=== PATIENT | female | born 2000 | race Caucasian/White ===

== ENCOUNTER 2019-12-14 00:34 | Emergency (ER) | payer MEDICAID, SELFPAY ==
[2019-12-14] VITALS (12 sets, daily range): BP systolic 128–138; BP diastolic 76–105; PULSE 91–110; RESP 15–18; TEMP 36.6–36.9; O2SAT 96–98; BMI 20.9
--- NOTE | 2019-12-14 00:39 | ED.RN ---
PER PT REQUEST, [facility] CONTACTED TO FILE A REPORT
--- NOTE | 2019-12-14 00:51 | ED.RN ---
PER DISPATCH, PT WILL NEED GO TO [facility] TO MAKE A REPORT
--- NOTE | 2019-12-14 00:58 | ED.RN ---
THIS NURSE CONTACTED PT FATHER. HE WILL COME TO THE ER. IS GOING TO HAVE THE BROTHER COME UP ALSO
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
--- NOTE | 2019-12-14 01:11 | ED.RN ---
PER DR LUNDY, NO SITTER NEEDED
[2019-12-14 01:14] LABS: Internal QC Validated? YES +Cl - CLEAR BKGD; Pregnancy, Serum, hCG Quali. NEGATIVE Negative
[2019-12-14 01:15] LABS: Alcohol, Blood (Medical)-Serum < 3.0 mg/dL
[2019-12-14 01:17] LABS: Anion Gap 8 (5-15); BUN 15 mg/dL (7-18); BUN/Creat Ratio 15.1 RATIO (10-20); Chloride 109 mmol/L (98-107); Creatinine, Serum 0.99 mg/dL (0.55-1.02); EST Glomerular Filtration Rate 75 mL/min (>60); Est Glom Filt Rate - Afr Amer 91 mL/min (>60); Estimated Creatinine Clearance 74.98 ml/min; Glucose 105 mg/dL (74-106); Potassium 3.7 mmol/L (3.5-5.1); Sodium Level 140 mmol/L (136-145)
--- NOTE | 2019-12-14 01:32 | ED.RN ---
THIS NURSE REQUESTED PT TO GIVE A URINE SAMPLE. PT DOES NOT THINK SHE CAN GO AT THIS TIME. OFFERED TO GET HER SOMETHING TO DRINK OR EAT. PT DECLINED
[2019-12-14 01:33] LABS: Absolute Lymphocyte Count 1.89 X10^3/uL (0.83-4.51); Absolute Neutrophil Count 7.1 X10^3/uL (2.0-7.7); Basophil# 0.03 X10^3/uL; Basophil% 0.3 % (0-1); Eosinophil# 0.04 X10^3/uL; Eosinophils% 0.4 % (0-5); Hematocrit 42.5 % (37-47); Lymphocyte # 1.89 X10^3/ul (4.0); Lymphocyte % 19.4 % (19-41); Mean Corp Hgb Conc 35.3 g/dL (32-36); Mean Corpuscular Hgb 31.1 pg (27.0-32.0); Mean Corpuscular Volume 88.2 fL (81-99); Mean Platelet Vol. 10.7 fl (6.2-12.0); Monocyte% 7.2 % (0-10); NRBC Flagged by Analyzer 0 % (0-5); Neutrophil # 7.06 X10^3/uL (2.7-7.7); Neutrophil % 72.4 % (47-70); Platelet Count 244 K/mm3 (150-450); RBC Distribution Width CV 12.2 % (11.6-14.6); RBC Distribution Width SD 39.3 fl (35.1-43.9); Red Blood Count 4.82 M/mm3 (4.2-5.4); White Blood Count 9.8 K/mm3 (4.4-11.0)
--- NOTE | 2019-12-14 01:36 | ED.RN ---
PT BROTHER AND ARE HERE. PT ONLY WANTS TO SEE HER FATHER, BROTHER, AND BOYFRIEND. BROTHER WANTS TO STAY IN THE WAITING ROOM UNTIL FATHER GETS HERE
--- NOTE | 2019-12-14 01:56 | ED.RN ---
DR LUNDY SPEAKING WITH FATHER AND BROTHER
--- NOTE | 2019-12-14 02:15 | ED.RN ---
THIS NURSE IN THE ROOM TO BE A SITTER. PT VERY UNCOOPERATIVE AND YELLING. PT DEMANDING TO SPEAK WITH HER FATHER. FATHER CAME INTO THE ROOM. PT DEMANDING HER PHONE AND TO SPEAK WITH HER FAMILY. DR LUNDY IN THE ROOM TO EXPLAIN TO THE PT THAT SHE IS PINK SLIPPED. PT GOT OUT OF THE BED AND ATTEMPTED TO LEAVE THE DEPARTMENT. THIS NURSE AND THE PT BROTHER CONVINCED PT TO GET BACK IN THE BED. PT REQUESTING TO SPEAK TO HER BROTHER ALONE. THIS NURSE EXPLAINED TO HER BROTHER AND PT THAT WE ARE UNABLE TO LEAVE THE ROOM AND SHUT THE DOOR. THE PT BEGAN QUIETLY SPEAKING WITH HER BROTHER. THIS NURSE ASKED TO PT IF SHE WOULD LIKE SOMETHING TO HELP HER CALM DOWN. PT DID NOT ANSWER THE QUESTIONS.
--- NOTE | 2019-12-14 02:40 | EKG12_ITS ---
Test Reason : MEDICAL CLEARANCE Blood Pressure : / mmHG Vent. Rate : 103 BPM Atrial Rate : 103 BPM P-R Int : 158 ms QRS Dur : 070 ms QT Int : 356 ms P-R-T Axes : 067 066 040 degrees QTc Int : 466 ms Sinus tachycardia Otherwise normal ECG Confirmed by ARTIS RODRÍGUEZ, KACIE ([id number]), editor managing newspaper PARUL MACIAS ([id number]) on 12/16/2019 12:57:06 PM Referred By: NIKKIE Confirmed By:BRIE WISDOM MD
[2019-12-14 02:59] LABS: AST(SGOT) 18 U/L (15-37); Alanine Aminotransfer ALT/SGPT 22 U/L (13-56); Albumin, Serum 4.8 g/dL (3.2-5.0); Alkaline Phosphatase 66 U/L (45-117); Bilirubin, Direct 0.23 mg/dL (0.00-0.30); Globulin 3.8 g/dL (2.2-4.2); Protein, Total 8.6 g/dL (6.4-8.2)
--- NOTE | 2019-12-14 03:09 | ED.RN ---
PT UP TO THE BATHROOM. URINE SAMPLE OBTAINED. PT STATES STOP LOOKING AT ME LIKE THAT. THIS NURSE AND HER BROTHER ATTEMPTED TO EXPLAIN THAT WE ARE ATTEMPTING TO HELP HER. PT GIVEN HER CELL PHONE BY THIS NURSE. THE BROTHER EXPLAINED TO THE PT THAT HE NEEDED TO LEAVE. PT AGAIN WAS OFFERED SOMETHING TO HELP HER RELAX BY PATSY Cramer RN. PT REFUSED. PT SITTING IN THE BED ON HER PHONE. SITTER REMAINS AT THE BEDSIDE
--- NOTE | 2019-12-14 03:12 | ED.RN ---
FATHER (MARI) CELL PHONE # [phone]
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
--- NOTE | 2019-12-14 03:30 | ED.RN ---
PT REQUESTING TO SEE THE PT. WHEN THE NURSE WAS ASKED BY PATSY Cramer RN IF SHE WANTED HER TO COME TO THE ROOM THE PT STATES NO. WHEN THE WAS INFORMED OF THIS INFORMATION HE WAS VERY RESPECTFUL AND SAID HE UNDERSTOOD. THE SHOWED A STAFF MEMBER A TEXT MESSAGE HE RECEIVED FROM THE PT SAYING SHE WANTS TO SEE HIM. HE WAS INFORMED THAT UNFORTUNATELY, SHE TOLD OUR STAFF NO
[2019-12-14 03:31] LABS: Glucose, Dipstick Normal (Normal); Ketone-Dipstick 50 mg/dl (Negative); Leukocyte Esterase-Dipstick 500 /ul (Negative); Nitrite-Dipstick Negative (Negative); Occult Blood-Urine 10 /ul (Negative); Protein-Dipstick 30 mg/dl (Negative); Urine Bilirubin Dipstick Negative (Negative); Urine Urobilinogen 1 mg/dl (Normal)
[2019-12-14 03:34] LABS: Color, Urine Yellow (Yellow); Urine Clarity Sl Cldy (Clear)
[2019-12-14 03:35] LABS: Amphetamine Urine VISTA NEGATIVE (<1000 ng/mL); Barbiturate Urine VISTA NEGATIVE (< 200 ng/mL); Benzodiazepine Urine VISTA NEGATIVE (< 200 ng/mL); Cocaine Urine VISTA NEGATIVE (< 300 ng/mL); Ecstacy Urine VISTA NEGATIVE (< 500 ng/mL); Methadone Urine VISTA NEGATIVE (< 300 ng/mL); PCP Urine VISTA NEGATIVE (< 25 ng/mL); THC Urine VISTA POSITIVE (< 50 ng/mL); Vista UDS pH Range 5
[2019-12-14 03:41] LABS: Calcium Oxalate Crystals Ur RARE /hpf (<or=2+)
[2019-12-14 03:42] LABS: Bacteria 1+ /hpf (None Seen); White Blood Cells 25-50 SEEN /hpf (0-5)
[2019-12-14 03:43] LABS: Squamous Epithelial Cells - UA 5-10 SEEN /hpf (5-10)
[2019-12-14 03:44] LABS: Mucous, Urine RARE /hpf (<or=2+); Red Blood Cells-Urine 0-5 SEEN /hpf (0-5)
[2019-12-14] MEDS: Smz/Tmp Ds Tablet 1 TABLET PO (04:36)
--- NOTE | 2019-12-14 08:23 | ED.RN ---
BREAKFAST TRAY GIVEN TO PT. PT DENIES FURTHER NEEDS AT THIS TIME.
--- NOTE | 2019-12-14 08:57 | ED.RN ---
RING GIVEN TO SPOUSE.
--- NOTE | 2019-12-14 11:45 | ED.RN ---
EKG NEEDED FOR PLACEMENT TO [facility]. PT UNCOOPERATIVE AND TEARFUL, PT STATES WORRIED THAT EKG WILL BE PAINFUL. PT REASSURED THAT EKG IS PAINLESS. PT CONTINUES TO BE TEARFUL. EKG IS ACQUIRED AND SENT TO [facility]. PT DENIES FURTHER NEEDS AT THIS TIME. PT ALSO STATES THAT SHE HAS BODY ACHES AND HURTS ALL OVER. TYLENOL ORDERED PER MAR, HOWEVER PT REFUSES. LUNCH TRAY DELIVERED, PT REFUSES TO EAT. BREAKFAST TRAY REMOVED FROM ROOM AND LUNCH TRAY LEFT ON COUNTER IN ROOM.
--- NOTE | 2019-12-14 12:34 | ED.RN ---
PT REQUESTS THAT EX-, VALENTINA, NOT BE ALLOWED TO ROOM TO VISIT. TRIAGE INFORMED. VISITORS WILL BE RESTRICTED PER PT REQUEST.
--- NOTE | 2019-12-14 15:52 | ED.RN ---
CALLED JONAH AT [facility] AND INFORMED HER THAT TRANSPORTING SQUAD PRESENT AND WILL BE BRINGING PT TO [facility].
== END 2019-12-14 15:58 ==
PROVIDERS: Emergency Medicine; Emergency Provider Emergency Medicine
DX: N39.0 Urinary tract infection, site not specified (principal); R45.851 Suicidal ideations; F17.210 Nicotine dependence, cigarettes, uncomplicated
CPT/HCPCS: 80048; 80076; 80307; 80320; 81001; 84703; 85025; 93005; 99285; G0480; J3486

== ENCOUNTER 2022-11-26 01:34 | Emergency (ER) | payer BC, MEDICAID, SELFPAY ==
[2022-11-26 01:38] VITALS: BP 141/89; PULSE 76; RESP 18; TEMP 36.8; O2SAT 100; BMI 32.1
--- NOTE | 2022-11-26 01:53 | EDS_ITS ---
HPI History of Present Illness Chief Complaint: Cellulitis Informant: patient Onset/Context/Timing Onset: Days (1-2) Context: Gradual Onset Timing: Continuous Quality: sore/pain Location: both breasts Current Severity: Severe Maximum Severity: Severe Worsened by: physical manipulation, baby , pumping Relieved by: nothing; has tried ibuprofen only Associated Symptoms Associated Symptoms: none Narrative Narrative: Patient presenting with bilateral breast pain that has been gradually worsening over the last 1 or 2 days. She is breast-feeding a 4-month-old. She had something similar happen a month or so ago and was diagnosed with a clogged milk duct, so she thinks it is the same thing and presents with that as her chief complaint but now it is both breasts and there is redness and swelling her pain is a lot worse. No fevers or chills. She is having trouble getting milk out although some of it is coming out, no other discharge such as bleeding or pus. PFSH PFSH no medical history Home Medications cephalexin 500 mg capsule 500 mg PO Q6 #40 CAPSULES 11/26/22 [Rx Last Taken Unknown] tramadol 50 mg tablet 50 mg PO Q6H PRN pain 3 days #12 tabs 11/26/22 [Rx Last Taken Unknown] Allergy/AdvReac Type Severity Reaction Status Date / Time No Known Allergies Allergy Verified 12/14/19 00:35 Surgical History H/O section Social History Smoking Status: Former smoker ROS ROS ED Constitutional Constitutional ED: Denies chills or fever(s) Respiratory/Chest Respiratory/Chest: Reports other Details: Breast pain and redness see HPI EXAM Physical Exam Const Vital Signs: 11/26/22 01:38 Temperature 98.2 F Temperature Source Temporal Pulse Rate 76 Respiratory Rate 18 Blood Pressure 141/89 H Blood Pressure Mean 106 Pulse Ox 100 Oxygen Delivery Method Room Air Positive well nourished and well developed General Appearance ED: well developed and NAD HEENT Reports moist mucous membranes Eyes PERRL and EOMs intact bilaterally Neck supple Neck Narrative: FROM Chest Wall Chest Narrative: Bilateral tender erythema with some induration but no abscess in both breasts, emanating from the nipple and areola, worse in dependent areas of breasts and worse on the right, although the left nipple and areola is worse. There is some milk leaking from the left nipple. No pus or bleeding. No palpable abscesses on either breast. No other areas of the chest wall involved. Resp normal respiratory effort Neuro oriented x3, CN's II-XII intact bilaterally and no sensory deficits noted Motor Exam: strength 5/5 throughout Psych mental status grossly normal Mood & Affect: tearful Skin Skin Narrative: See breast exam above no other abnormal lesions or areas. No bullae. No petechia. No purpura. MDM MDM MDM Narrative Medical decision making narrative: I think this is more consistent with mastitis rather than a clogged milk duct since both breasts are involved, and she is having erythema away from the areola as well. Gave her a dose of IM Ancef here, some tramadol, as well as a prescription for cephalexin and tramadol and advised to follow-up with her [employer]POSAL WORKER. Discharge Plan Triage Chief Complaint: Cellulitis ED Provider: Michele Mari Dx/Rx/DC Orders Clinical Impression: Acute mastitis Instructions: ED Mastitis Prescriptions: New tramadol 50 MG tablet 50 mg PO Q6H PRN (Reason: pain) 3 Days Qty: 12 0RF cephalexin [cephalexin] 500 MG capsule 500 mg PO Q6 Qty: 40 0RF Primary Care Provider: Care Physician,No Primary Referrals: SEW[employer] DISPOSAL WORKER, your [Other] - As soon as possible Care Physician,No Primary [Primary Care Provider] - Activity Restrictions/Additional Instructions: Continue to try pumping breastmilk as able. Dump/discard it for now until you talk to your breast surgeon, while you are on the antibiotic and/or pain medication, but it is important to still pump to try to keep your breastmilk coming in as long as possible. Disposition Disposition: Home, Self Care
[2022-11-26] MEDS: Cefazolin 1 GM/5 ML Vial IM (02:26)
[2022-11-26] MEDS: traMADol 50 MG Tablet PO (02:27)
== END 2022-11-26 02:30 | disposition home or self-care (01) ==
LOC: ED 02:05
PROVIDERS: Emergency Provider Emergency Medicine; Visit Provider Emergency Medicine
DX: N61.0 Mastitis without abscess (principal); Z87.891 Personal history of nicotine dependence
CPT/HCPCS: 96372; 99283

== ENCOUNTER 2022-12-28 22:31 | Emergency (ER) | payer BC, MEDICAID, SELFPAY ==
[2022-12-28 22:32] VITALS: BP 121/73; PULSE 74; RESP 15; TEMP 36.6; O2SAT 98; BMI 29.5
--- NOTE | 2022-12-29 00:21 | EDS_ITS ---
HPI History of Present Illness Chief Complaint: Cellulitis Narrative Narrative: Patient is a 22-year-old female who states that she is approximately 3 months .. She states that she pumps and then feeds breastmilk to her daughter. She states a month or so ago she was diagnosed with mastitis and took antibiotics and improved. She states in the last 1 to 2 days she has noticed bilateral breast swelling and redness. She states there is some pain associated with this but otherwise states that it is also pruritic. She denies any nipple discharge and she denies any trauma or history of immunosuppression. However with concern for repeat infection she presents for evaluation. PFSH PFSH Home Medications cephalexin 500 mg capsule 500 mg PO Q6 #40 CAPSULES 11/26/22 [Rx Last Taken Un known] tramadol 50 mg tablet 50 mg PO Q6H PRN pain 3 days #12 tabs 11/26/22 [Rx Last Taken Unknown] cephalexin 500 mg capsule 500 mg PO TID 7 days #21 caps 12/29/22 [Rx Last Taken Unknown] fluconazole 150 mg tablet (Diflucan) 150 mg PO Q3D 3 days #3 tabs 12/29/22 [Rx Last Taken Unknown] nystatin 100,000 unit/gram topical cream 1 applic topical TID 10 days #30 grams 12/29/22 [Rx Last Taken Unknown] Allergy/AdvReac Type Severity Reaction Status Date / Time No Known Allergies Allergy Verified 12/28/22 22:35 Surgical History H/O section Social History Smoking Status: Former smoker ROS ROS ED Constitutional Constitutional ED: Denies chills or fever(s) ENT ENT ED: Denies sore throat Cardiovascular Cardiovascular: Denies chest pain Respiratory/Chest Respiratory/Chest: Denies cough or dyspnea Gastrointestinal Gastrointestinal: Denies abdominal pain, diarrhea, nausea or vomiting Genitourinary Genitourinary ED: Denies dysuria Musculoskeletal Musculoskeletal: Denies myalgias Integumentary Reports rash Neurologic Neurologic: Denies headache(s) Hematologic/Lymphatic Hematologic/Lymphatic: Denies easy bleeding or easy bruising EXAM Physical Exam Const Vital Signs: 12/28/22 22:32 Temperature 97.9 F Temperature Source Temporal Pulse Rate 74 Respiratory Rate 15 Blood Pressure 121/73 H Blood Pressure Mean 89 Pulse Ox 98 Oxygen Delivery Method Room Air Positive well nourished and well developed General Appearance ED: well developed HEENT HEENT Narrative: No oral lesions no airway edema or compromise Eyes PERRL and EOMs intact bilaterally Neck supple Resp normal respiratory effort and clear to auscultation bilaterally Cardio regular rate and regular rhythm Extremity normal to inspection Neuro oriented x3 and CN's II-XII intact bilaterally Sensorium / Orientation: alert Psych mental status grossly normal Skin Skin Narrative: Along the lower medial quadrant of bilateral breast there is erythema that is blanchable in nature. There is just slight warmth associated with this. No abscess formation or lymphangitic streaking noted. Patient does state that the area is more pruritic than painful. No obvious breast mass noted. MDM MDM MDM Narrative Medical decision making narrative: Patient presented to the ER with stable vitals and does not have a history of immunosuppression. She denies any recent trauma and states that she is not truly breast-feeding but pumping. Differential includes mastitis versus abscess versus breast mass versus cutaneous candidiasis. As the area is bilateral along the medial lower quadrants and she states is more pruritic in nature I feel this is most likely topical candidiasis. Therefore this time without signs of systemic infection or abscess formation or breast mass there is no need for imaging or laboratory studies. Patient be placed on medication secondary to this and is otherwise safe for discharge History & Record Review Discussion w/independent historian: Patient and Family Discharge Plan Triage Chief Complaint: Cellulitis ED Provider: Froylan Tomas Dx/Rx/DC Orders Clinical Impression: Candidiasis of skin Instructions: ED Kasia Skin Infection (Adult) Prescriptions: New fluconazole [Diflucan] 150 mg tablet 150 mg PO Q3D 3 Days Qty: 3 0RF Rx Instructions: 1 pill by mouth every 3 days for 3 doses nystatin 100,000 unit/gram cream 1 applic topical TID 10 Days Qty: 30 1RF cephalexin 500 mg capsule 500 mg PO TID 7 Days Qty: 21 0RF No Action tramadol 50 MG tablet 50 mg PO Q6H PRN (Reason: pain) 3 Days Qty: 12 0RF cephalexin [cephalexin] 500 MG capsule 500 mg PO Q6 Qty: 40 0RF Primary Care Provider: Care Physician,No Primary Referrals: Care Physician,No Primary [Primary Care Provider] - Activity Restrictions/Additional Instructions: Your physical exam indicates this is a topical skin infection from yeast not bacteria. Take the oral antifungal and use the topical antifungal as directed to help resolve this. If there is no improvement after 5 to 7 days you may transition to the antibiotic that was also prescribed. If you have any further concerns or worsening of symptoms return to the ER for repeat evaluation. It is safe to breast-feed while taking the prescribed medication Disposition Disposition: Home, Self Care Discharge Date/Time: 12/29/22 00:38
[2022-12-29] MEDS: Fluconazole 100 MG Tablet 150 MG PO (00:25)
== END 2022-12-29 00:38 | disposition home or self-care (01) ==
PROVIDERS: Emergency Provider Emergency Medicine; Visit Provider Emergency Medicine
DX: B37.2 Candidiasis of skin and nail (principal); Z87.891 Personal history of nicotine dependence
CPT/HCPCS: 99282

== ENCOUNTER 2024-08-21 08:37 | Emergency (ER) | payer OTHER, MEDICAID, SELFPAY ==
[2024-08-21 08:38] VITALS: BP 114/65; PULSE 76; RESP 16; TEMP 36.7; O2SAT 100; BMI 30.2
--- NOTE | 2024-08-21 08:48 | ED.VIS.FEGU ---
HPI HPI - Female History of Present Illness Chief Complaint: Complaint Narrative Narrative: 24-year-old female, G2, P1 at approximately 18 weeks gestation presents with UTI type symptoms that she has had since Thursday. This was 2 days ago. She complains of urinary frequency, burning, and dysuria. She has pain in her left side of her pelvis it is more dull and achy. She denies any vaginal bleeding. No fevers or chills. She has had nausea and vomiting since the first trimester of her . She states that she called the E[employer]IC ASSEMBLER on-call, who thought maybe she had a urinary tract infection. She went to urgent care, who in turn sent her to the emergency department for further evaluation. PFSH PFS Home Medications ?Medication ?Instructions ?Recorded ?Last Taken ?Type cephalexin 500 mg capsule 500 mg PO Q6 #40 CAPSULES 11/26/22 Unknown Rx tramadol 50 mg tablet 50 mg PO Q6H PRN pain 3 days #12 11/26/22 Unknown Rx tabs cephalexin 500 mg capsule 500 mg PO TID 7 days #21 caps 12/29/22 Unknown Rx fluconazole 150 mg tablet 150 mg PO Q3D 3 days #3 tabs 12/29/22 Unknown Rx (Diflucan) nystatin 100,000 unit/gram topical 1 applic topical TID 10 days #30 12/29/22 Unknown Rx cream grams Allergy/AdvReac Type Severity Reaction Status Date / Time No Known Allergies Allergy Verified 08/21/24 08:38 Surgical History H/O section Social History Smoking Status: Former smoker ROS ROS ED ROS Narrative Focused review of systems positive for dysuria, burning with urination and urinary frequency. No gross hematuria. No vaginal bleeding. Mild left-sided pelvic pain. No fevers or chills. No recent nausea or vomiting. No problems with bowel movement. EXAM Physical Exam Narrative Exam Narrative: Afebrile. Vital signs noted. Nontoxic-appearing. Cardiovascular examination reveals a regular rate and rhythm. Lungs are clear to auscultation bilaterally. Abdomen is soft, nontender, with positive bowel sounds. No guarding or rebound. No CVA tenderness to percussion bilaterally. Neurological examination is nonfocal and nonlateralizing. Ambulatory in emergency department. Const Vital Signs: 08/21/24 08:38 Temperature 98.0 F Temperature Source Oral Pulse Rate 76 Respiratory Rate 16 Blood Pressure 114/65 Blood Pressure Mean 81 Pulse Ox 100 Oxygen Delivery Method Room Air MDM MDM MDM Narrative Medical decision making narrative: Differential diagnosis includes but not limited to cystitis versus pyelonephritis versus diverticulitis. I have low concern for premature labor or ureterolithiasis because the history and physical does not support this. She is below 20 weeks gestation as her last menstrual period was sometime in February. I do not feel she requires formal ultrasound currently as she is not having vaginal bleeding. She states she has had ultrasounds in the office which show intrauterine . Urinalysis and urine culture were obtained. RN will attempt to obtain heart rate. I reviewed her urinalysis and while there are 0 WBCs and 0-5 squamous epithelial cells she has 2+ bacteria without mucus, negative ketones, negative nitrites. This was sent for culture. However, with her being with heart rate obtained and reviewed at 142 bpm, she will be treated as a urinary tract infection and was given her first dose of Keflex here. I paged the E[employer]IC AS[employer]BLER on-call for [facility] to arrange follow-up. Return instructions to the emergency department were reviewed. Disposition is discharged home in stable condition. History & Record Review Discussion w/independent historian: Patient Lab Data Attestation: I reviewed the patient's lab results. Labs: Laboratory Results - last 24 hr 08/21/24 09:05 Urine Color Yellow Urine Clarity Clear Urine pH 8.0 Ur Specific [place] 1.015 Urine Protein Negative Urine Glucose (UA) Normal Urine Ketones Negative Urine Occult Blood Negative Urine Nitrite Negative Urine Bilirubin Negative Urine Urobilinogen Normal Ur Leukocyte Esterase Negative Urine RBC 0 SEEN Urine WBC 0 SEEN Ur Squamous Epith Cells 0-5 SEEN Amorphous Sediment 1+ Urine Bacteria 2+ Urine Mucus 0 SEEN Management Discussion w/another healthcare provider: Booking Police Officer (Dr. Motta, [employer]) Discharge Plan Triage Chief Complaint: Complaint ED Provider: Adolfo Yadav Dx/Rx/DC Orders Prescriptions: No Action tramadol 50 MG tablet 50 mg PO Q6H PRN (Reason: pain) 3 Days Qty: 12 0RF cephalexin [cephalexin] 500 MG capsule 500 mg PO Q6 Qty: 40 0RF fluconazole [Diflucan] 150 mg tablet 150 mg PO Q3D 3 Days Qty: 3 0RF Rx Instructions: 1 pill by mouth every 3 days for 3 doses nystatin 100,000 unit/gram cream 1 applic topical TID 10 Days Qty: 30 1RF cephalexin 500 mg capsule 500 mg PO TID 7 Days Qty: 21 0RF Primary Care Provider: Care Physician,No Primary Referrals: Care Physician,No Primary [Primary Care Provider] - Print Language: Slovenian
[2024-08-21 09:10] LABS: Mucous, Urine 0 SEEN /hpf (<or=2+); Red Blood Cells-Urine 0 SEEN /hpf (0-5); White Blood Cells 0 SEEN /hpf (0-5)
[2024-08-21 09:25] LABS: Color, Urine Yellow (Yellow); Glucose, Dipstick Normal (Normal); Ketone-Dipstick Negative (Negative); Leukocyte Esterase-Dipstick Negative /ul (Negative); Nitrite-Dipstick Negative (Negative); Occult Blood-Urine Negative /ul (Negative); Protein-Dipstick Negative (Negative); Specific Gravity, Urine 1.015 (1.002-1.030); Urine Bilirubin Dipstick Negative (Negative); Urine Clarity Clear (Clear); Urine Urobilinogen Normal (Normal)
[2024-08-21 09:35] LABS: Amorphous Sediment 1+; Bacteria 2+ /hpf (None Seen); Squamous Epithelial Cells - UA 0-5 SEEN /hpf (5-10)
[2024-08-21 10:14] VITALS: BP 119/67
[2024-08-21] MEDS: Cephalexin 250 MG Capsule 500 MG PO (10:22)
== END 2024-08-21 10:22 | disposition home or self-care (01) ==
PROVIDERS: Emergency Provider Emergency Medicine; Visit Provider Emergency Medicine
DX: O23.42 Unspecified infection of urinary tract in pregnancy, second trimester (principal); O21.9 Vomiting of pregnancy, unspecified; Z3A.18 18 weeks gestation of pregnancy; Z87.891 Personal history of nicotine dependence
CPT/HCPCS: 81001; 87086; 87088; 99282

== ENCOUNTER 2025-01-12 09:46 | Inpatient (IN) | payer OTHER, MEDICAID, SELFPAY ==
[2025-01-12] VITALS (16 sets, daily range): BP systolic 83–129; BP diastolic 50–80; PULSE 66–89; RESP 12–20; TEMP 36.2–36.6; O2SAT 16–100; BMI 34.2
[2025-01-12] MEDS: Lactated Ringers 1,000 ML 999 ML IV (10:00)
[2025-01-12 10:28] LABS: Absolute Lymphocyte Count 2.07 X10^3/uL (0.83-4.51); Absolute Neutrophil Count 8.8 X10^3/uL (2.0-7.7); Basophil# 0.03 X10^3/uL; Basophil% 0.3 % (0-1); Eosinophil# 0.13 X10^3/uL; Eosinophils% 1.1 % (0-5); Hematocrit 35.2 % (37-47); Hemoglobin 11.9 g/dL (12.0-15.0); Lymphocyte # 2.07 X10^3/ul (0.83-4.51); Lymphocyte % 17.6 % (19-41); Mean Corp Hgb Conc 33.8 g/dL (32-36); Mean Corpuscular Hgb 30.7 pg (27.0-32.0); Mean Corpuscular Volume 90.7 fL (81-99); Mean Platelet Vol. 11.7 fl (6.2-12.0); Monocyte# 0.65 X10^3/uL; Monocyte% 5.5 % (0-10); NRBC Flagged by Analyzer 0 % (0-5); Neutrophil # 8.82 X10^3/uL (2.7-7.7); Neutrophil % 74.9 % (47-70); Platelet Count 218 K/mm3 (150-450); RBC Distribution Width CV 14.1 % (11.6-14.6); RBC Distribution Width SD 46.5 fl (35.1-43.9); Red Blood Count 3.88 M/mm3 (4.2-5.4); White Blood Count 11.8 K/mm3 (4.4-11.0)
[2025-01-12 10:59] LABS: Syphilis Antibodies Nonreactive (Nonreactive)
[2025-01-12] MEDS: Lactated Ringers 1,000 ML 150 ML IV (11:01)
[2025-01-12 12:26] LABS: Amphetamine Urine NEGATIVE (<1000 ng/mL); Barbiturate Urine NEGATIVE (< 200 ng/mL); Benzodiazepine Urine NEGATIVE (< 200 ng/mL); Buprenorphine Urine NEGATIVE (< 200 ng/mL); Cocaine Urine NEGATIVE (< 300 ng/mL); Fentanyl, Urine NEGATIVE; Methadone Urine NEGATIVE (< 300 ng/mL); Opiates Urine NEGATIVE (< 300 ng/mL); Oxycodone, Urine NEGATIVE (< 100 ng/mL); PCP Urine NEGATIVE (< 25 ng/mL); THC Urine PRESUMPTIVE POSITIVE (< 50 ng/mL)
--- NOTE | 2025-01-12 13:04 | HP.PCM.OB_ITS ---
HPI - General General Date of Admission: 01/12/25 HPI Narrative KEYSHAWN RENEE, is a 24 F who presents for repeat . Maternal Data Information SARA Calculator Estimated Delivery Date Method Current WG Current Estimate 01/19/25 Manual 39w 0d Final SARA: 01/19/25 [facility] Medical History Asthma depression Depression Anxiety Psychiatric disorder Pre-eclampsia Gestational diabetes Home Medications ?Medication ?Instructions ?Recorded ?Last Taken ?Type aspirin 81 mg tablet,delayed 81 mg PO DAILY history Pr e-e 01/12/25 Unknown Hi story release vitamin 1 tab PO DAILY 07/29 Unknown History no.76-iron,carbonyl 29 mg iron-folic acid 1 mg tablet (Prenatabs Rx) Allergy/AdvReac Type Severity Reaction Status Date / Time No Known Allergies Allergy Verified 01/12/25 10:12 Surgical History (Updated 01/12/25 @ 13:[address] Rad Blair MD) History of surgery H/O section Social History Smoking Status: Former smoker History Elective abortions Hx Para 1 Spontaneous abortions Hx # Term Pregnancies Ectopic pregnancies Hx # Pregnancies Multiple births # of living children Vital Signs Vital Signs Vital Signs: 01/12/25 10:16 Temperature 97.7 F L Temperature Source Temporal Pulse Rate 73 Respiratory Rate 16 Blood Pressure 129/78 H Blood Pressure Mean 95 Blood Pressure Source Monitor Blood Pressure Position Semi-Fowlers Blood Pressure Location Left Arm Pulse Ox 16 Oxygen Delivery Method Room Air Weight Weight: 193 lb Body Mass Index (BMI) 34.2 Labs Labs Labs: Blood Type A NEGATIVE Antibody Screen NEGATIVE Hct 35.2 % (37-47) L Hgb 11.9 g/dL (12.0-15.0) L Syphilis Total Ab Nonreactive (Nonreactive) Assessment & Plan (1) H/O section: COMMENT: @ 39 weeks PLAN: Plan Admit to L&D MOD - proceed with repeat . discussed R/B/A and informed consent signed.
[2025-01-12] MEDS: Acetaminophen 500 MG Tablet 1000 MG PO ×2 (13:08→18:37)
[2025-01-12] MEDS: Sodium Citrate/Citric Acid 30 ML UDC PO (13:08)
--- NOTE | 2025-01-12 13:11 | EX.PCM.OBRPT ---
Maternal Data Information SARA Calculator Estimated Delivery Date Method Current WG Current Estimate 01/19/25 Manual 39w 0d Operative Report (OB) Details Procedure Type: low transverse Date of Procedure: 01/12/25 Procedure Start Time: 13:31 Procedure Stop Time: 14:12 Pre-Operative Diagnosis: Repeat Elective Post-Operative Diagnosis: Same as Pre-operative diagnosis Classification: Scheduled Type of Anesthesia: Spinal Antibiotic Given: Ancef 2 grams IV x1 Drain: Mishra to straight drain Estimated Blood Loss: 800ml Fluids Replaced: 1000ml Findings Description of surgery: The patient was taken to the operating room where spinal anesthesia was placed & found to be adequate. She was prepped and draped in the dorsal supine position with a leftward tilt. A Pfannenstiel skin incision was made approximately 2 cm above the symphysis pubis and carried through to the underlying fascia with the scalpel. The fascia was incised incised in the midline and extended laterally with the Alcaraz scissors. The rectus muscles were in the midline and the peritoneum was entered carefully and bluntly. The peritoneal incision was stretched and the bladder blade was inserted. Vesicouterine peritoneum was tented up, incised & then bladder flap created gently. The uterine incision was made in a low transverse fashion with the scalpel and extended superiorly and inferiorly with blunt dissection. The infant's head was brought to the incision in the flexed position and did not deliver. Rectus muscles on right side . The 's still did not deliver. Vacuum applied & position confirmed on head. Using 2 pulls of the vacuum and good fundal pressure the head delivered. One pop off occurred. The head was gently guided to allow delivery of the anterior and posterior shoulders. The body then delivered with fundal pressure in the standard fashion. The 3VC cord was clamped and cut. The was handed off to the waiting pediatric neuropsychologist. The placenta was delivered with fundal massage and gentle traction in the standard fashion. The uterus was exteriorized and cleared of clots and debris. The uterine incision was closed with #1 Vicryl suture in a running locked fashion. Monocryl suture was used in an imbricating fashion. The incision was examined and was found to be hemostatic. The uterus was returned to the abdominal cavity. After irrigating Kimo was placed over the uterine incision as some areas were denuded (but hemostatic). The rectus muscle was examined and any bleeding was Bovie cauterized. The fascia was closed with PDS suture in a running standard fashion. The subcutaneous tissue was examining and any bleeding was Bovie cauterized. The subcutaneous tissue was reapproximated with interrupted sutures. The skin was closed in a subcuticular fashion by the TEXTILE ARTIST while I was present in the OR. The remainder of the procedure was performed by me with assistance. Surgical findings: normal maternal uterus and adnexa Presentation: Vertex Amniotic Membrane Rupture Type: Artificial Amniotic Fluid Description: Clear Placental Delivery Description: Expressed Placenta Disposition: [facility] Specimen collected: No Cord Vessel Description: 3 Vessels Cord Entanglement: None Infant A gender: Male (1 minute): 8 (5 minute): 10 Delayed Cord Clamping: No Rn Hematology computer analyst supervisor: Yes Ticket Printer: Jamal Guerra Tasks completed by first assistant manager: Opening & closing and Retracting Additional digital assistant?: No Complications Complications: No
[2025-01-12] MEDS: Cefazolin 2 GM in Syringe IV (13:41)
[2025-01-12] MEDS: Oxytocin 15 Units/NS 250ml 15 UNITS/250 ML IV.SOLN 83 UNITS IV (14:25)
[2025-01-12] MEDS: Ketorolac 30 MG/ML Syringe IV ×2 (14:47→21:19)
[2025-01-12] MEDS: Rho(D) Immune Globulin 300 MCG (1500 Unit) Syringe IV (19:59)
[2025-01-12] MEDS: 0.9% Saline Lock 10 ML Syringe IV ×2 (20:03→21:20)
[2025-01-13 00:11] VITALS: BP 122/69; PULSE 83; RESP 16; TEMP 36.4; O2SAT 100
[2025-01-13] MEDS: Enoxaparin 40 MG/0.4 ML Syringe SC (01:39)
[2025-01-13] MEDS: Acetaminophen 500 MG Tablet 1000 MG PO ×4 (01:39→20:28)
[2025-01-13] MEDS: 0.9% Saline Lock 10 ML Syringe IV ×2 (03:24→09:31)
[2025-01-13] MEDS: Ketorolac 30 MG/ML Syringe IV ×2 (03:25→09:29)
[2025-01-13 05:00] VITALS: BP 119/72; PULSE 86; RESP 16; TEMP 36.4; O2SAT 99
[2025-01-13 05:29] LABS: Hematocrit 30.5 % (37-47); Hemoglobin 10.2 g/dL (12.0-15.0); Mean Corp Hgb Conc 33.4 g/dL (32-36); Mean Corpuscular Hgb 30.9 pg (27.0-32.0); Mean Corpuscular Volume 92.4 fL (81-99); Mean Platelet Vol. 11.4 fl (6.2-12.0); Platelet Count 181 K/mm3 (150-450); RBC Distribution Width CV 14.2 % (11.6-14.6); RBC Distribution Width SD 47.7 fl (35.1-43.9); White Blood Count 10.8 K/mm3 (4.4-11.0)
[2025-01-13 07:51] VITALS: BP 124/79; PULSE 90; RESP 16; TEMP 36.4; O2SAT 97
--- NOTE | 2025-01-13 08:41 | PCM.PN.OB ---
Subjective Subjective Doing well. Ambulating and voiding without difficulty. Mild lochia. Bottle feeding.Wants to restart bipolar meds. Has not been on them in a while. Does not know what she was taking. Did not have a plan . Objective Data Objective Data Vital Signs: Vital Signs Temp Pulse Resp BP Pulse Ox O2 Del Method 97.5 F L 90 16 124/79 H 97 Room Air 01/13/25 07:51 01/13/25 07:51 01/13/25 07:51 01/13/25 07:51 01/13/25 07:51 01/13/25 07:51 Oxygen Delivery Method Room Air Weight: 87.543 kg Body Mass Index (BMI) 34.2 Intake & Output: Intake and Output for Last 24 Hours 01/11/25 01/12/25 01/13/25 23:59 23:59 23:59 Intake Total 1780 / 1780 Output Total 1300 / 1300 700 / 700 Balance 480 / 480 -700 / -700 Lab / Micro Data 01/13/25 05:20 Labs: Laboratory Results - last 24 hr 01/12/25 10:00: WBC 11.8 H, RBC 3.88 L, Hgb 11.9 L, Hct 35.2 L, MCV 90.7, MCH 30.7, MCHC 33.8, RDW Std Deviation 46.5 H, RDW Coeff of Vicente 14.1, Plt Count 218, MPV 11.7, Immature Gran % (Auto) 0.600, Neut % (Auto) 74.9 H, Lymph % (Auto) 17.6 L, [place] % (Auto) 5.5, Eos % (Auto) 1.1, Baso % (Auto) 0.3, Absolute Neuts (auto) 8.8 H, Absolute Lymphs (auto) 2.07, Nucleated RBC % 0, Syphilis Total Ab Nonreactive, Blood Type A NEGATIVE, Antibody Screen NEGATIVE 01/12/25 11:00: Urine Opiates Screen NEGATIVE, U Buprenorphine Qual NEGATIVE, Ur Oxycodone Screen NEGATIVE, Urine Methadone Screen NEGATIVE, Urine Fentanyl Screen NEGATIVE, Ur Barbiturates Screen NEGATIVE, Ur Phencyclidine Scrn NEGATIVE, Ur Amphetamines Screen NEGATIVE, U Benzodiazepines Scrn NEGATIVE, Urine Cocaine Screen NEGATIVE, U Cannabinoids Screen PRESUMPTIVE POSITIVE 01/12/25 16:20: Screen NEGATIVE, Baby's Blood Type A POSITIVE, Baby's LAURA NEGATIVE 01/13/25 05:20: WBC 10.8, RBC 3.30 L, Hgb 10.2 L, Hct 30.5 L, MCV 92.4, MCH 30.9, MCHC 33.4, RDW Std Deviation 47.7 H, RDW Coeff of Vicente 14.2, Plt Count 181, MPV 11.4 ROS Constitutional Constitutional: Denies headache(s) Cardiovascular Cardiovascular: Denies chest pain or dyspnea Gastrointestinal Gastrointestinal: Denies nausea or vomiting Genitourinary Genitourinary: Denies dysuria Physical Exam Const alert, oriented x3 and no apparent distress General Appearance: cooperative and comfortable Eyes PERRL and EOMs intact bilaterally Resp normal respiratory effort GI soft to palpation and non-tender GI Narrative: soft, moderate distention, fundus firm, appropriately tender. Abdominal bandage clean dry and intact Uterus Palpation: uterus fundus firm ( below umbilicus) Extremity normal to inspection and full ROM Neuro oriented x3 and CN's II-XII intact bilaterally Psych mental status grossly normal Assessment & Plan (1) S/P : (2) Hx of bipolar disorder: PLAN: Has not been on meds for awhile. Does not remember who she saw REviewed behavioral health consult
[2025-01-13] MEDS: Senna/Docusate Sodium 1 Tablet PO (09:30)
[2025-01-13 13:53] VITALS: BP 122/60; PULSE 73; RESP 18; TEMP 36.8; O2SAT 97
--- NOTE | 2025-01-13 14:20 | CASEMGMT ---
Social Work Assessment Labor and Delivery Unit [facility] [place] [address] Phone number: [phone] Date of Referral: 01/12/25 Time of Referral:? 1039 Referred By: Dr. Rad Blair Date of Intervention: ??01/13/25 Time of Intervention:? 1200 Reason for Referral:? substance abuse Sw completed chart review and acknowledges social work consult. Sw presented to bedside and introduced self to mother of baby (FERNANDO- Azucena) and father of baby (FOMarivel- Harjinder). Sw explained reason for sw involvement and completed psychosocial assessment. History obtained from: medical records, MOB and FOB Household composition: Currently residing in the family home is NIGEL KING, their 2 year old daughter: Ana and baby when ready for discharge. Parents deny any problems with housing, reporting it to be safe and secure. Patient's parent/guardian status:? 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 baby is second baby for parents. No concerns reported of domestic violence or intimate partner violence. Medical History: ?FERNANDO is 24 year old female who is 2, para 1- now 2 following labor and delivery of . FERNANDO received routine care during with [facility]. FERNANDO presented to hospital for scheduled repeat at 39 weeks gestation on 01/12/25. Baby boy, named Wang Cordova, was born weighing 7lb 9oz and had apgars of 8 and 10 at one and five minutes of life, respectfully. FERNANDO is bottle feeding and states that baby will be followed by Dr. Donahue for pediatrics. Educational Status:? Both parents graduated from high school, no problems with reading, learning or comprehension. Financial Status: Both parents are employed outside of the home. FOMarivel works at a [employer]. FERNANDO works for [employer]. Infant Supplies: All necessary baby supplies obtained, including: car seat, safe sleep space, clothes, diapers and wipes. Childcare/Caregiver(s):? FERNANDO states that she will be the primary caregiver to baby. When FERNANDO returns to working parents will alternate their scheduled so one of them will be able to provide childcare. Transportation:??NIGEL states that he has his drivers license and a reliable vehicle, FERNANDO does not drive and is dependent upon FOB to get her to dr appointments and to work. Programs/Agencies Involved: ??Parent are connected to financial resources provided by [facility], they receive medical insurance and WIC. MOB states that they have applied for SNAP in the past but were over income. Sw encouraged parents to reapply now that baby is here their household size has increased, and MOB will be on unpaid maternity leave. Children Services/Legal Issues:??? No prior children services involvement. Flory informed parents that sw would be making referral to children services due to maternal substance use during . MOB expressed understanding. Behavioral Health Issues: ??Mental Health History:?FOMarivel states that he has been diagnosed with anxiety. He has previously been prescribed zoloft, however he felt as though the zoloft made his symptoms worse so he stopped taking it. MOB states that she has been diagnosed with anxiety, depression and Bipolar. MOB states that she struggles mostly with anxiety, and contributing to her anxiety is feeling lonely. FOB states that he is able to identify when MOB is starting to feel anxious. MOB states that her coping is to clean and tiddy the house. FOB states that he tries to encourage MOB to sit down and relax, but when she does that MOB states she feels anxious. FERNANDO is not prescribed any medications to help her manage her mental health at this time. FERNANDO states that she did counseling when she was young, but is able to recognize that counseling may be beneficial for her at this time, specifically post . FERNANDO completed an Crossroads Depression Scale and her score was 18, which is indicative of and meets the threshold for depression/ anxiety. Substance Use History: FERNANDO reports to smoking THC daily to help manage her mental health. ?? Family History:??NIGEL also admits to smoking THC. Parents deny any other family history of substance use or significant mental health diagnoses. ??? Drug Screens: FERNANDO's urine drug screen is positive for THC, baby is negative and meconium still pending. Family/Social Stressors:? Parents have limited supports and FERNANDO has been struggling with symptoms of anxiety and depression prior to and throughout . FERNANDO was tearful while completing assessment and her Crossroads score is high. FERNANDO endorses to smoking THC daily throughout to help manage her anxiety. Support Systems: FERNANDO states that NIGEL and her mom are her biggest supports. Depression/Shaken Baby/Safe Sleeping: Sw educated MOB and FOB on signs and symptoms of baby blues and depression and anxiety. FOB states that he is able to recognize when MOB is struggling and does his best to be supportive. MOB agrees to what FOB states, and says that when he is not home with her her mental health is worse. MOB states that on really bad days she will call him at work and ask him to come home. MOB states that this happens on average two times a month. MOB states that she is aware that she should be connected to a mental health professional to help her during this period. Sw asked MOB if she would like sw to assist her in making an intake at an agency of MOB choice. MOB stated that she can hold her self accountable and will get connected. Sw provided MOB with list of counseling agencies that are local to her. MOB denies having thoughts of hurting herself or her children. Sw explained to MOB that she is at higher risk for experiencing psychosis due to having diagnosis of BiPolar. MOB expressed understanding. Sw educated parents on shaken baby prevention and ABCs of safe sleep, parents express understanding. ASSESSMENT:? MOB and baby admitted following labor and delivery. FOB and MOB at bedside comfortably sitting on bed and chair. FOB holding baby and attentive to his needs. MOB understandably and appropriately tearful throughout parts of the conversation with sw. MOB receptive to getting connected to mental health services and supports, and FOB also appears to be supportive of this. MOB expresses understanding of anxiety and depression and is being mindful of how she is feeling thus far after delivery. Parents were talkative and engaging with sw throughout completion of assessment, conversation flowed naturally. MOB expresses to having a connection and murillo with baby, and is happy that he is here. Parents have obtained all necessary baby supplies and have some natural supports in place. Sw explained to MOB reason for children services referral to be made due to her substance use throughout of THC. MOB expressed understanding. Safe Plan of Care for related to substance use:? FERNANDO admits that she continues to plan on using THC. MOB reports that she uses in a seperate room of the house, and always when FOB is home and is attending to their daughter, and now . MOB reports that she washes hands/ face and changes clothes prior to engaging with her daughter. MOB states that her THC is in a locked and hidden space so that children do not have access to it. PLAN:?? No other services requested or indicated. MOB and baby to be discharged when medically ready. Parents were provided literature regarding: signs and symptoms of baby blues and mood and anxiety disorders, Help Me Grow, shaken baby prevention, ABCs of safe sleep and a list of county resources that are available for them should any needs present themselves. Kevin Chatman, YOUTH PROGRAM DIRECTOR, PROFESSOR OF POLITICAL SCIENCE
[2025-01-13] MEDS: Ibuprofen 600 MG Tablet PO ×2 (15:20→20:57)
[2025-01-13] MEDS: SimETHICONE 80 MG Chewable Tablet PO (17:28)
[2025-01-13 20:31] VITALS: BP 129/71; PULSE 80; RESP 16; TEMP 36.6; O2SAT 98
[2025-01-14] MEDS: Enoxaparin 40 MG/0.4 ML Syringe SC (02:21)
[2025-01-14] MEDS: Acetaminophen 500 MG Tablet 1000 MG PO ×2 (02:22→08:56)
[2025-01-14] MEDS: Ibuprofen 600 MG Tablet PO ×2 (02:22→08:57)
[2025-01-14 02:24] VITALS: BP 122/70; PULSE 63; RESP 16; TEMP 36.6
--- NOTE | 2025-01-14 08:16 | PCM.PN.OB ---
Subjective Subjective Doing well. Ambulating and voiding without difficulty. Mild lochia. Breast feeding. Objective Data Objective Data Vital Signs: Vital Signs Temp Pulse Resp BP Pulse Ox O2 Del Method 97.8 F 63 16 122/70 H 98 Room Air 01/14/25 02:24 01/14/25 02:24 01/14/25 02:24 01/14/25 02:24 01/13/25 20:31 01/14/25 02:24 Oxygen Delivery Method Room Air Weight: 87.543 kg Body Mass Index (BMI) 34.2 Intake & Output: Intake and Output for Last 24 Hours 01/12/25 01/13/25 01/14/25 23:59 23:59 23:59 Intake Total 1780 / 1780 Output Total 1300 / 1300 700 / 700 Balance 480 / 480 -700 / -700 Lab / Micro Data 01/13/25 05:20 ROS Constitutional Constitutional: Denies headache(s) Cardiovascular Cardiovascular: Denies chest pain or dyspnea Gastrointestinal Gastrointestinal: Denies nausea or vomiting Genitourinary Genitourinary: Denies dysuria Physical Exam Const alert, oriented x3 and no apparent distress General Appearance: cooperative and comfortable Eyes PERRL and EOMs intact bilaterally Resp normal respiratory effort GI soft to palpation and non-tender GI Narrative: soft, moderate distention, fundus firm, appropriately tender. Abdominal bandage clean dry and intact Uterus Palpation: uterus fundus firm ( below umbilicus) Extremity normal to inspection and full ROM Neuro oriented x3 and CN's II-XII intact bilaterally Psych mental status grossly normal Assessment & Plan (1) S/P : (2) Hx of bipolar disorder: PLAN: Has not been on meds for awhile. Does not remember who she saw Reviewed behavioral health consult PLAN: Plan Discharge home
--- NOTE | 2025-01-14 08:18 | PCM.DC.SUM ---
Providers Date of Admission: 01/12/25 Date of Discharge: 01/14/25 Primary Care Physician: No Primary Care Phys Reason For Visit: REPEAT C SECTION Diagnosis Discharge Diagnosis (1) S/P : Status: Acute Code(s): Z98.891 - History of uterine scar from previous surgery (2) Hx of bipolar disorder: Status: Acute Code(s): Z86.59 - Personal history of other mental and behavioral disorders Plan: Has not been on meds for awhile. Does not remember who she saw Reviewed behavioral health consult Plan Discharge home Medications at Discharge Home Medications vitamin no.76-iron,carbonyl 29 mg iron-folic acid 1 mg tablet (Prenatabs Rx) 1 tab PO DAILY 01/12/25 acetaminophen 500 mg tablet 1,000 mg (2 x 500 mg) PO Q6H #30 tabs 01/14/25 ibuprofen 600 mg tablet 600 mg PO Q6H #30 tabs 01/14/25 Hospital Course Operations section Procedures None Summary of Care Provided Minutes Spent on Discharge: 20 Hospital Course: Scheduled repeat . Uncomplicated course. Behavioral health consult planned for Bipolar. Physical Exam Const alert General Appearance: cooperative GI GI Narrative: soft, moderate distention, fundus firm, appropriately tender. Abdominal bandage clean dry and intact Weight / BMI Weight Weight: 87.543 kg Body Mass Index (BMI) 34.2 ABG / Lab / Microbiology Data 01/13/25 05:20 D/C Instructions Discharge Diet: No restrictions May resume sexual activity in: 4-6 weeks Lifting Restrictions: 20 pounds Additional Activity Instructions: Nothing in the vagina for 4-6 weeks. You may return to work/school in 6 weeks. Call your doctor if your incision/area has: Continuous Slow Oozing, Sudden Increased Bleeding, Increased Pain/ Swelling, Increased Redness and Foul Smelling Discharge Call your doctor if you observe: Fever of 101 or Higher and Using more than 1 pad per hour (for 2 hours) Suture Line Care: Avoid Pulling/Pushing and Avoid Pinching/Bending Cleanse incision/area with: Keep Dressing Clean & Dry DC O2, CPAP, BIPAP Needs Home O2 Discharge instructions: No Please Follow Up With: Kareen Loza MD When: Call to make an appointment for an incision check in 1-2 [phone]. You will need a post check in 6 weeks. Meaningful Use Info Meaningful Use Meaningful Use Diagnoses (Choose all that apply): None applicable Ischemic Stroke Statin Dosing Therapy Reference: STATIN DOSE THERAPY REFERENCE: * Patients > 75 years receive moderate or high dose statin therapy. * Patients 75 years or YOUNGER should receive HIGH intensity statin dose unless contraindicated. You will be required to document reason for non-treatment if statin daily dose does not meet guidelines. HIGH DOSE STATIN THERAPY DAILY Atorvastatin > than or = to 40 mg Rosuvastatin > than or = to 20 mg Amlodipine + Atorvastatin > than or = to 2.5/40 mg Ezetimibe + Simvastatin 10/80 mg Simvastatin 80mg Discharge Plan Admission Admit Date/Time: 01/12/25 09:46 Primary Reason for Your Visit: delivery Attending Provider: Rad Blair Primary Care Provider: Care Physician,Galina Primary Discharge Orders/Prescriptions Prescriptions: New acetaminophen 500 mg Tablet 1,000 mg PO Q6H Qty: 30 0RF ibuprofen 600 mg Tablet 600 mg PO Q6H Qty: 30 0RF Continued Prenatabs Rx 29 mg iron- 1 mg tablet 1 tab PO DAILY Discontinued aspirin 81 mg tablet,delayed release (DR/EC) 81 mg PO DAILY Referrals / Follow Up: Care Physician,No Primary [Primary Care Provider] - Disposition Disposition (needs filled in before D/C Order can be placed): Home, Self Care
[2025-01-14] MEDS: Senna/Docusate Sodium 1 Tablet PO (08:57)
[2025-01-14 08:58] VITALS: BP 124/83; PULSE 84; RESP 16; TEMP 36.3; O2SAT 99
--- NOTE | 2025-01-14 13:20 | CASEMGMT ---
Social Work Date of referral: 01/14/25 Reason for referral: Depression/Anxiety/Discharge planning Referred by: charge nurse workers' compensation hearings officer was requested to follow up with the mother of baby (MOB) prior to discharge to further assess depression due to mother of baby scoring high on the [place] Depression Scale as well as scoring a 9 on the first PHQ-9 and a 14 on the second PHQ-9. Upon entry to the room, MOB was sitting on the couch with and the father of baby (FOB) was sitting close-by on a chair. MOB and FOB consented to social work visit. MOB reported she was doing good right now and denied any suicidal ideation including any suicidal thoughts, plans, methods. MOB reported feeling safe and stated she is going to follow up with [facility] on Thursday. Previous assessment that has already been completed with the MOB also addressed issues of depression and anxiety at length. MOB had also been previously provided with verbal and written resources which MOB stated were sufficient at this time. No additional concerns reported/observed. MOB ready to be discharged when medically ready. Tonia Ramirez, LAW EXAMINER, SUPERVISOR AUDIT CLERKS
== END 2025-01-14 13:45 | disposition home or self-care (01) | DRG 788 ==
PROVIDERS: Admitting Provider Obstetrics & Gynecology; Referring Provider Obstetrics & Gynecology; Visit Provider Obstetrics & Gynecology
PROC: 10D00Z1 Extraction of Products of Conception, Low, Open Approach (ICD-10-PCS; CPT 59514; principal; 2025-01-12 11:45)
DX: O34.219 Maternal care for unspecified type scar from previous cesarean delivery (principal); F31.9 Bipolar disorder, unspecified; O99.344 Other mental disorders complicating childbirth; Z37.0 Single live birth; Z3A.39 39 weeks gestation of pregnancy; Z86.32 Personal history of gestational diabetes; Z87.891 Personal history of nicotine dependence
CPT/HCPCS: 59025; 59050; 80307; 85025; 85027; 85461; 86780; 86850; 86900; 86901; 90384; 99221; A4216; G0378; J2405; J2790; J2791

== ENCOUNTER 2025-01-15 20:05 | Emergency (ER) | payer OTHER, MEDICAID, SELFPAY ==
[2025-01-15 20:05] VITALS: BP 137/75; PULSE 78; RESP 19; TEMP 36.5; O2SAT 98; BMI 32.3
--- NOTE | 2025-01-15 20:40 | CM.ED ---
Social Work: Date of referral: 01/15/25 Reason for referral: Support Referred by: Social Work identification Patient provided consent for social work visit. Patient having breast pain and just had recent delivery of . Patient has history of depression so clinical social work therapist just wanted to check in given recent delivery and depression history to make sure patient was feeling ok which patient otherwise stated she was excluding the breast pain. plant worker offered emotional support. No other needs identified at this time. Tonia Ramirez, STRATEGIC PROCUREMENT MANAGER, WILDLIFE FORENSIC GENETICIST
--- NOTE | 2025-01-15 20:46 | EX.ED.DYSGE1 ---
HPI <MALLY Santiago - Last Filed: 01/15/25 21:25> History of Present Illness Chief Complaint: Other, Pain/Inj Narrative Narrative: 24-year-old female had a delivery on 01/12/2025. She was discharged yesterday. Today she is having pain in both breasts and when she called her W[employer]PERATIONS SUPERVISOR they recommended she come to the ED for evaluation of mastitis. Patient is not breast-feeding and is expressing a small amount of colostrum. She states she had mastitis during her last but at that time was breast-feeding and had redness and she has not noticed any redness currently. No fever chills or nausea or vomiting. PFSH <MALLY Santiago - Last Filed: 01/15/25 21:25> [facility] Medical History (Updated 01/15/25 @ 21:20 by MALLY Santiago) Asthma depression Depression Anxiety Psychiatric disorder Pre-eclampsia Gestational diabetes Home Medications ?Medication ?Instructions ?Recorded ?Last Taken ?Type vitamin 1 tab PO DAILY 01/12/25 Unknown History no.76-iron,carbonyl 29 mg iron-folic acid 1 mg tablet (Prenatabs Rx) acetaminophen 500 mg tablet 1,000 mg (2 x 500 mg) PO Q6H #30 01/14/25 Unknown Rx tabs ibuprofen 600 mg tablet 600 mg PO Q6H #30 tabs 01/14/25 Unknown Rx Allergy/AdvReac Type Severity Reaction Status Date / Time No Known Allergies Allergy Verified 01/15/25 20:06 Surgical History History of surgery H/O section Social History Smoking Status: Former smoker ROS <MALLY Santiago - Last Filed: 01/15/25 21:25> ROS ED ROS Narrative Constitutional: Negative for fever, chills, malaise. GI: Negative for nausea, vomiting. Skin: Negative for rash. EXAM <MALLY Santiago - Last Filed: 01/15/25 21:25> Physical Exam Narrative Exam Narrative: CONST: Patient sitting in no acute distress. EYES: Normal inspection. NECK: Normal inspection. RESP: No respiratory distress, CTAB. CVS: Regular rate and rhythm, no murmur, no gallop. Chest: Breasts appear normal with palpable enlarged lymph nodes and diffuse tenderness. No erythema or warmth. She is expressing a small amount of colostrum from both nipples but there is no purulent drainage. SKIN: Color normal, no rash, warm, dry, intact. EXTREMITIES: Normal appearance, no pedal edema. NEURO: Alert and answering questions appropriately. PSYCH: Normal affect. Const Vital Signs: 01/15/25 20:05 01/15/25 20:27 Temperature 97.7 F L Temperature Source Oral Pulse Rate 78 Respiratory Rate 19 H Respiratory Effort Normal Non-Labored Respiratory Pattern Normal Blood Pressure 137/75 H Blood Pressure Mean 95 Pulse Ox 98 Oxygen Delivery Method Room Air <Dr. Rod Skinner DO - Last Filed: 01/15/25 21:34> Physical Exam Const Vital Signs: 01/15/25 20:05 01/15/25 20:27 Temperature 97.7 F L Temperature Source Oral Pulse Rate 78 Respiratory Rate 19 H Respiratory Effort Normal Non-Labored Respiratory Pattern Normal Blood Pressure 137/75 H Blood Pressure Mean 95 Pulse Ox 98 Oxygen Delivery Method Room Air MDM <MALLY Santiago - Last Filed: 01/15/25 21:25> [facility] Narrative Medical decision making narrative: History gathered from: Patient and mom Differential includes but not limited to breast engorgement, mastitis Consults: [employer] SUPERVISOR 24-year-old female had a delivery 3 days ago and now presents with bilateral breast pain. She has not been breast-feeding and clinically has engorgement and diffuse tenderness. There is no signs of mastitis or infection and she has no systemic signs or symptoms. She has not been wearing her bra. I recommended tight compression, ice, and after discussion with on-call W[employer] OPERATIONS SUPERVISOR they recommended antihistamines as this can help dry up milk. Patient counseled she can take Benadryl as needed. She was discharged in stable condition. <Dr. Rod Skinner DO - Last Filed: 01/15/25 21:34> [facility] History & Record Review Discussion w/independent historian: Patient and Family Treatment and Re-Evaluation :: I have personally performed a face to face assessment of the patient and have reviewed the CHRISTIAN Note. I performed a substantive portion of the visit including all aspects of the following. My campbell findings include: History is 24-year-old female delivered on this past week. She breast-fed her first described as an over reproducer. She notes breast engorgement and pain. She denies erythema or fever. She states it does feel different than prior episodes of mastitis. Exam is deferred by attending as the patient previously underwent examination by the physician assistant director of plant operations. Patient is comfortable with deferring. Patient clinically appears well. She is alert no acute distress without fever. Medical Decison Making Case discussed with OB on-call. Patient will use compression ice packs and antihistamines. Patient to follow-up with OB. She was encouraged to try to express the milk to further complicate the issue Discharge Plan Triage Chief Complaint: Other, Pain/Inj ED Midlevel Provider: Laura Villasenor ED Provider: Rod Skinner Dx/Rx/DC Orders Clinical Impression: Breast engorgement, Acute breast pain Instructions: Breast Care After Prescriptions: No Action Prenatabs Rx 29 mg iron- 1 mg tablet 1 tab PO DAILY acetaminophen 500 mg Tablet 1,000 mg PO Q6H Qty: 30 0RF ibuprofen 600 mg Tablet 600 mg PO Q6H Qty: 30 0RF Primary Care Provider: Care Physician,No Primary Referrals: Care Physician,No Primary [Primary Care Provider] - Activity Restrictions/Additional Instructions: Your breasts are engorged with milk which is causing the pain. Wear compression like a very tight bra or Milad wrap, use ice packs, and you can take Benadryl for 6 hours as needed. OB recommended this to help dry up your milk. Print Language: Swiss Disposition Disposition: Home, Self Care Discharge Date/Time: 01/15/25 21:30
== END 2025-01-15 21:30 | disposition home or self-care (01) ==
PROVIDERS: Emergency Provider Emergency Medicine; Visit Provider Emergency Medicine
DX: O92.79 Other disorders of lactation (principal); Z87.891 Personal history of nicotine dependence
CPT/HCPCS: 99282